=== PATIENT | male | born 1985 | race Caucasian/White ===

== ENCOUNTER 2018-08-19 00:22 | Inpatient (IN) | payer SELFPAY ==
[2018-08-19] VITALS (9 sets, daily range): BP systolic 126–156; BP diastolic 66–91
[~2018-08-19] VITALS: Ht 175.3 cm; Wt 73.3 kg
[2018-08-19] MEDS ORDERED: MORPHINE SULFATE 2 MG/ML VIAL. IV PRN ×2 (02:30→08:30)
[2018-08-19] MEDS ORDERED: ONDANSETRON PF 4 MG/2 ML VIAL. IV PRN ×2 (02:30→08:30)
[2018-08-19] MEDS: MORPHINE SULFATE 4 MG/ML VIAL. IV PRN ×4 (02:49→15:38)
[2018-08-19] MEDS: IV NORMAL SALINE 1000ML BAG 1,000 ML IV SCH ×2 (02:50→12:30)
[2018-08-19 07:28] LABS: BASO % 0 % (0-3); EOS # 0.1 x10^3/uL (0.0-0.7); EOS % 1 % (0-3); HEMATOCRIT 41.1 % (39.0-53.0); HEMOGLOBIN 14.2 g/dL (13.0-17.5); LYMPH % 28 % (24-48); MEAN CORPUSCULAR HEMOGLOBIN 30 pg (25-35); MEAN CORPUSCULAR HGB CONC 35 g/dL (31-37); MEAN CORPUSCULAR VOLUME 85 fL (79-100); MONO # 0.9 x10^3/uL (0.0-1.1); MONO % 8 % (0-9); NEUT # 6.8 x10^3uL (1.8-7.7); NEUT % 63 % (31-73); PLATELET COUNT 191 x10^3/uL (140-400); RED BLOOD COUNT 4.83 x10^6/uL (4.30-5.70); RED CELL DISTRIBUTION WIDTH 13.4 % (11.5-14.5); WHITE BLOOD COUNT 10.8 x10^3/uL (4.0-11.0)
[2018-08-19 07:32] LABS: ALBUMIN 3.5 g/dL (3.4-5.0); ALBUMIN/GLOBULIN RATIO 1.2 (1.0-1.7); CREATININE 1.5 mg/dL (0.7-1.3); GFR 54.2; POTASSIUM 3.9 mmol/L (3.5-5.1); TOTAL BILIRUBIN 0.8 mg/dL (0.2-1.0); TOTAL PROTEIN 6.4 g/dL (6.4-8.2)
[2018-08-19] MEDS ORDERED: IV RINGERS,LACTATED 1000ML 1,000 ML IV SCH (08:21)
[2018-08-19] MEDS ORDERED: PROCHLORPERAZINE 10 MG/2 ML VIAL. IV PRN (08:30)
[2018-08-19] MEDS ORDERED: LIDOCAINE 1% PF 2 ML VIAL. ID PRN (08:30)
[2018-08-19] MEDS ORDERED: fentaNYL PF VIAL 100 MCG/2 ML VIAL IV PRN ×2 (08:30)
[2018-08-19] MEDS ORDERED: HYDROmorphone 2 MG/ML VIAL IV PRN (08:30)
--- NOTE | 2018-08-19 10:56 | PDOC2 ---
UROLOGY CONSULT Date of Consult Date of Consult DATE: 08/19/18 TIME: 10:52 Reason for Consult Reason for Consult: right ureter stone Identification/Chief Complaint Chief Complaint right flank pain History of Present Illness Reason for Visit: 33 yo male transferred from [facility] this AM. Has had 2 weeks right flank pain. CT showed 4 mm right UVJ stone. Has had 4 ER trips for this in the past 2 weeks. No fevers, chills, hematuria. Has had several stones in past. Currently mild right flank and lower abdominal pain. Past Medical History Renal/: Other (kidney stones) Past Surgical History Past Surgical History: No pertinent history Family History Family History: No Significant Social History No ALCOHOL: rare Drugs: None Lives: with Family Current Medications Current Medications Current Medications Fentanyl Citrate (Fentanyl 2ml Vial) 25 mcg PRN Q5MIN PRN IV MILD PAIN; Start 08/19/18 at 08:30; Stop 08/20/18 at 08:29 Fentanyl Citrate (Fentanyl 2ml Vial) 50 mcg PRN Q5MIN PRN IV MODERATE TO SEVERE PAIN; Start 08/19/18 at 08:30; Stop 08/20/18 at 08:29 Hydromorphone HCl (Dilaudid) 0.5 mg PRN Q10MIN PRN IV SEV PAIN, Second choice; Start 08/19/18 at 08:30; Stop 08/20/18 at 08:29 Lidocaine HCl (Xylocaine-Mpf 1% 2ml Vial) 2 ml 1X PRN PRN ID IV START; Start 08/19/18 at 08:30; Stop 08/20/18 at 08:29 Morphine Sulfate (Morphine Sulfate) 1 mg PRN Q10MIN PRN IV SEVERE PAIN; Start 08/19/18 at 08:30; Stop 08/20/18 at 08:29 Morphine Sulfate (Morphine Sulfate) 2 mg PRN Q2HR PRN IV PAIN MILD Last administered on 08/19/18at 06:08; Start 08/19/18 at 02:30 Morphine Sulfate (Morphine Sulfate) 4 mg PRN Q2HR PRN IV PAIN SEVERE Last administered on 08/19/18at 08:08; Start 08/19/18 at 02:30 Ondansetron HCl (Zofran) 4 mg PRN Q6HRS PRN IV NAUSEA/VOMITING 1st choice; Start 08/19/18 at 02:30 Ondansetron HCl (Zofran) 4 mg PRN Q6HRS PRN IV NAUSEA/VOMITING; Start at 08:30; Stop 08/20/18 at 08:29 Prochlorperazine Edisylate (Compazine) 5 mg PACU PRN PRN IV NAUSEA, MRX1; Start 08/19/18 at 08:30; Stop 08/20/18 at 08:29 Ringer's Solution 1,000 ml @ 30 mls/hr Q24H IV ; Start 08/19/18 at 08:21; Stop 08/19/18 at 20:20 Sodium Chloride 1,000 ml @ 100 mls/hr Q10H IV Last administered on 08/19/18at 02:50; Start 08/19/18 at 02:30 Allergies Allergies: Coded Allergies: No Known Drug Allergies (Unverified , 08/19/18) ROS Review Of Systems: except as in HPI: CONSTITUTIONAL: No fever or chills EYES: No recent changes SKIN: No rash or itching CARDIOVASCULAR: No chest pain, syncope, palpitations, or edema RESPIRATORY: No SOB or cough GASTROINTESTINAL: poor appetite, poor PO intake NEUROLOGICAL: No headaches or weakness ENDOCRINE: No cold or heat intolerance GENITOURINARY: No urgency or frequency of urination MUSCULOSKELETAL: No back pain or joint pain LYMPHATICS: No enlarged lymph nodes PSYCHIATRIC: No anxiety or depression Physical Exam Physical Exam: General: Pleasant, no acute distress, well groomed Eyes: conjunctiva anicteric, eyes full range of motion ENT: moist oral mucosa, normal dentition Neck: Trachea midline, no masses Respiratory: unlabored breathing, not using accessory muscles, no crackles or wheezes Cardiovascular: Regular rate and rhythm, no peripheral edema Abdomen: mild RLQ tender, nondistended, no hepatosplenomegaly, no masses BACK: mild right CVA tenderness Skin: no rashes or skin lesions on visualized skin Psych: normal mood, affect. Alert and oriented x 3. Vitals VITALS Vital Signs Date Time Temp Pulse Resp B/P (MAP) Pulse Ox O2 Delivery O2 Flow Rate FiO2 08/19/18 08:08 Room Air 08/19/18 07:00 97.9 56 16 149/91 (110) 97 97.9 Labs Labs Laboratory Tests Test 08/19/18 07:05 White Blood Count 10.8 x10^3/uL (4.0-11.0) Red Blood Count 4.83 x10^6/uL (4.30-5.70) Hemoglobin 14.2 g/dL (13.0-17.5) Hematocrit 41.1 % (39.0-53.0) Mean Corpuscular Volume 85 fL (79-100) Mean Corpuscular Hemoglobin 30 pg (25-35) Mean Corpuscular Hemoglobin Concent 35 g/dL (31-37) Red Cell Distribution Width 13.4 % (11.5-14.5) Platelet Count 191 x10^3/uL (140-400) Neutrophils (%) (Auto) 63 % (31-73) Lymphocytes (%) (Auto) 28 % (24-48) Monocytes (%) (Auto) 8 % (0-9) Eosinophils (%) (Auto) 1 % (0-3) Basophils (%) (Auto) 0 % (0-3) Neutrophils # (Auto) 6.8 x10^3uL (1.8-7.7) Lymphocytes # (Auto) 3.0 x10^3/uL (1.0-4.8) Monocytes # (Auto) 0.9 x10^3/uL (0.0-1.1) Eosinophils # (Auto) 0.1 x10^3/uL (0.0-0.7) Basophils # (Auto) 0.0 x10^3/uL (0.0-0.2) Sodium Level 142 mmol/L (136-145) Potassium Level 3.9 mmol/L (3.5-5.1) Chloride Level 106 mmol/L (98-107) Carbon Dioxide Level 30 mmol/L (21-32) Anion Gap 6 (6-14) Blood Urea Nitrogen 16 mg/dL (8-26) Creatinine 1.5 mg/dL (0.7-1.3) Estimated GFR (Cockcroft-Gault) 54.2 BUN/Creatinine Ratio 11 (6-20) Glucose Level 89 mg/dL (70-99) Calcium Level 9.0 mg/dL (8.5-10.1) Total Bilirubin 0.8 mg/dL (0.2-1.0) Aspartate Amino Transf (AST/SGOT) 23 U/L (15-37) Alanine Aminotransferase (ALT/SGPT) 77 U/L (16-63) Alkaline Phosphatase 55 U/L (46-116) Total Protein 6.4 g/dL (6.4-8.2) Albumin 3.5 g/dL (3.4-5.0) Albumin/Globulin Ratio 1.2 (1.0-1.7) Laboratory Tests Test 08/19/18 07:05 White Blood Count 10.8 x10^3/uL (4.0-11.0) Red Blood Count 4.83 x10^6/uL (4.30-5.70) Hemoglobin 14.2 g/dL (13.0-17.5) Hematocrit 41.1 % (39.0-53.0) Mean Corpuscular Volume 85 fL (79-100) Mean Corpuscular Hemoglobin 30 pg (25-35) Mean Corpuscular Hemoglobin Concent 35 g/dL (31-37) Red Cell Distribution Width 13.4 % (11.5-14.5) Platelet Count 191 x10^3/uL (140-400) Neutrophils (%) (Auto) 63 % (31-73) Lymphocytes (%) (Auto) 28 % (24-48) Monocytes (%) (Auto) 8 % (0-9) Eosinophils (%) (Auto) 1 % (0-3) Basophils (%) (Auto) 0 % (0-3) Neutrophils # (Auto) 6.8 x10^3uL (1.8-7.7) Lymphocytes # (Auto) 3.0 x10^3/uL (1.0-4.8) Monocytes # (Auto) 0.9 x10^3/uL (0.0-1.1) Eosinophils # (Auto) 0.1 x10^3/uL (0.0-0.7) Basophils # (Auto) 0.0 x10^3/uL (0.0-0.2) Sodium Level 142 mmol/L (136-145) Potassium Level 3.9 mmol/L (3.5-5.1) Chloride Level 106 mmol/L (98-107) Carbon Dioxide Level 30 mmol/L (21-32) Anion Gap 6 (6-14) Blood Urea Nitrogen 16 mg/dL (8-26) Creatinine 1.5 mg/dL (0.7-1.3) Estimated GFR (Cockcroft-Gault) 54.2 BUN/Creatinine Ratio 11 (6-20) Glucose Level 89 mg/dL (70-99) Calcium Level 9.0 mg/dL (8.5-10.1) Total Bilirubin 0.8 mg/dL (0.2-1.0) Aspartate Amino Transf (AST/SGOT) 23 U/L (15-37) Alanine Aminotransferase (ALT/SGPT) 77 U/L (16-63) Alkaline Phosphatase 55 U/L (46-116) Total Protein 6.4 g/dL (6.4-8.2) Albumin 3.5 g/dL (3.4-5.0) Albumin/Globulin Ratio 1.2 (1.0-1.7) Assessment/Plan Assessment/Plan We discussed options of trying to allow stone pass vs surgery. Since he has had several hospital visits, he wants to proceed with surgery. Plan for right ureteroscopy, laser of stone, possible stent placement later today. Risks of bleeding, infection, injury to urologic structures, anesthesia risk discussed. FAY STRANGE MD Aug 19, 2018 10:55
--- NOTE | 2018-08-19 11:17 | PDOC1 ---
History and Physical Date of Admission Date of Admission DATE: 08/19/18 TIME: 11:17 Identification/Chief Complaint Chief Complaint 33 yo male from [facility] , 2 weeks right intractable flank pain. CT showed 4 mm right UVJ stonePREOPERATIVE DIAGNOSIS: Right ureteral stone. POSTOPERATIVE DIAGNOSIS: Right ureteral stone. PROCEDURE PERFORMED: Right ureteroscopy with laser of stone, stone extraction, stent placement. ANESTHESIA TYPE: General. INDICATION FOR PROCEDURE: This is a 33-year-old male admitted for right ureteral stone. After discussion of risks, benefits and alternatives, he agreed to the above procedure. Past Medical History Past Medical History Past Medical History Renal/: Other (kidney stones) Past Surgical History Past Surgical History: No pertinent history Family History Family History: No Significant Social History No ALCOHOL: rare Drugs: None Lives: with Family Cardiovascular: No pertinent hx Infectious disease: No pertinent hx Renal/: Other (kidney stones) Endocrine: No pertinent hx Past Surgical History Past Surgical History: No pertinent history Family History Family History: No Significant Social History Smoke: No ALCOHOL: rare Drugs: None Current Medications Current Medications Current Medications Ondansetron HCl (Zofran) 4 mg PRN Q6HRS PRN IV NAUSEA/VOMITING 1st choice; Start 08/19/18 at 02:30 Morphine Sulfate (Morphine Sulfate) 2 mg PRN Q2HR PRN IV PAIN MILD Last administered on 08/19/18at 06:08; Start 08/19/18 at 02:30 Morphine Sulfate (Morphine Sulfate) 4 mg PRN Q2HR PRN IV PAIN SEVERE Last administered on 08/19/18at 08:08; Start 08/19/18 at 02:30 Sodium Chloride 1,000 ml @ 100 mls/hr Q10H IV Last administered on 08/19/18at 02:50; Start 08/19/18 at 02:30 Ondansetron HCl (Zofran) 4 mg PRN Q6HRS PRN IV NAUSEA/VOMITING; Start at 08:30; Stop 08/20/18 at 08:29 Fentanyl Citrate (Fentanyl 2ml Vial) 25 mcg PRN Q5MIN PRN IV MILD PAIN; Start 08/19/18 at 08:30; Stop 08/20/18 at 08:29 Fentanyl Citrate (Fentanyl 2ml Vial) 50 mcg PRN Q5MIN PRN IV MODERATE TO SEVERE PAIN; Start 08/19/18 at 08:30; Stop 08/20/18 at 08:29 Morphine Sulfate (Morphine Sulfate) 1 mg PRN Q10MIN PRN IV SEVERE PAIN; Start 08/19/18 at 08:30; Stop 08/20/18 at 08:29 Ringer's Solution 1,000 ml @ 30 mls/hr Q24H IV ; Start 08/19/18 at 08:21; Stop 08/19/18 at 20:20 Lidocaine HCl (Xylocaine-Mpf 1% 2ml Vial) 2 ml 1X PRN PRN ID IV START; Start 08/19/18 at 08:30; Stop 08/20/18 at 08:29 Hydromorphone HCl (Dilaudid) 0.5 mg PRN Q10MIN PRN IV SEV PAIN, Second choice; Start 08/19/18 at 08:30; Stop 08/20/18 at 08:29 Prochlorperazine Edisylate (Compazine) 5 mg PACU PRN PRN IV NAUSEA, MRX1; Start 08/19/18 at 08:30; Stop 08/20/18 at 08:29 Cefazolin Sodium/ Dextrose 50 ml @ 100 mls/hr 1X ONCE IV ; Start 08/19/18 at 13:00; Stop 08/19/18 at 13:29 Allergies Allergies: Coded Allergies: No Known Drug Allergies (Unverified , 08/19/18) ROS General: No: Chills, Night Sweats, Fatigue, Malaise, Appetite, Other PSYCHOLOGICAL ROS: No: Anxiety, Behavioral Disorder, Concentration difficultie , Decreased libido, Depression, Disorientation, Hallucinations, Hostility, Irritablity, Memory difficulties, Mood Swings, Obsessive thoughts, Physical abuse, Sexual abuse, Sleep disturbances, Suicidal ideation, Other Eyes: No Blurry vision, No Decreased vision, No Double vision, No Dry eyes, No Excessive tearing, No Eye Pain, No Itchy Eyes, No Loss of vision, No Photophobia , No Scotomata, No Uses contacts, No Uses glasses, No Other HEENT: No: Heacaches, Visual Changes, Hearing change, Nasal congestion, Nasal discharge, Oral lesions, Sinus pain, Sore Throat, Epistaxis, Sneezing, Snoring, Tinnitus, Vertigo, Vocal changes, Other ALLERGY AND IMMUNOLOGY: No: Hives, Insect Bite Sensitivity, Itchy/Watery Eyes, Nasal Congestion, Post Nasal Drip, Seasonal Allergies, Other Hematological and Lymphatic: No: Bleeding Problems, Blood Clots, Blood Transfusions, Brusing, Night Sweats, Pallor, Swollen Lymph Nodes, Other Breast: No New/Changing Breast Lumps, No Nipple changes, No Nipple discharge, No Other Respiratory: No: Cough, Hemoptysis, Orthopnea, Pleuritic Pain, Shortness of breath, SOB with excertion, Sputum Changes, Stridor, Tachypnea, Wheezing, Other Cardiovascular: No Chest Pain, No Palpitations, No Orthopnea, No Paroxysmal Noc. Dyspnea, No Edema, No Lt Headedness, No Other Gastrointestinal: No Nausea, No Vomiting, No Abdominal Pain, No Diarrhea, No Constipation, No Melena, No Hematochezia, No Other Genitourinary: YES Dysuria, YES Hematuria Neurological: No Behavorial Changes, No Bowel/Bladder ControlChng, No Confusion , No Dizziness, No Gait Disturbance, No Headaches, No Impaired Coord/balance, No Memory Loss, No Numbness/Tingling, No Seizures, No Speech Problems, No Tremors, No Visual Changes, No Weakness, No Other Skin: No Dry Skin, No Eczema, No Hair Changes, No Lumps, No Mole Changes, No Mottling, No Nail Changes, No Pruritus, No Rash, No Skin Lesion Changes, No Other, No Acne Physical Exam General: Alert, Oriented X3, Cooperative, mild distress HEENT: Atraumatic, PERRLA Lungs: Clear to auscultation, Normal air movement Heart: S1S2, RRR, no thrills, no rubs, no murmurs Cardiovascular: S1, S2 Breasts: Not examined Abdomen: Normal bowel sounds, Soft Rectal Exam: not examined PELVIC: Examination not indicated Extremities: No clubbing, No cyanosis, No edema Skin: No rashes, No breakdown Neuro: Normal speech, Normal tone, Sensation intact, Cranial nerves 3-12 NL Psych/Mental Status: Mental status NL, Mood NL Vitals Vitals Vital Signs Date Time Temp Pulse Resp B/P (MAP) Pulse Ox O2 Delivery O2 Flow Rate FiO2 08/19/18 08:08 Room Air 08/19/18 07:00 97.9 56 16 149/91 (110) 97 97.9 Labs Labs Laboratory Tests Test 08/19/18 07:05 White Blood Count 10.8 x10^3/uL (4.0-11.0) Red Blood Count 4.83 x10^6/uL (4.30-5.70) Hemoglobin 14.2 g/dL (13.0-17.5) Hematocrit 41.1 % (39.0-53.0) Mean Corpuscular Volume 85 fL (79-100) Mean Corpuscular Hemoglobin 30 pg (25-35) Mean Corpuscular Hemoglobin Concent 35 g/dL (31-37) Red Cell Distribution Width 13.4 % (11.5-14.5) Platelet Count 191 x10^3/uL (140-400) Neutrophils (%) (Auto) 63 % (31-73) Lymphocytes (%) (Auto) 28 % (24-48) Monocytes (%) (Auto) 8 % (0-9) Eosinophils (%) (Auto) 1 % (0-3) Basophils (%) (Auto) 0 % (0-3) Neutrophils # (Auto) 6.8 x10^3uL (1.8-7.7) Lymphocytes # (Auto) 3.0 x10^3/uL (1.0-4.8) Monocytes # (Auto) 0.9 x10^3/uL (0.0-1.1) Eosinophils # (Auto) 0.1 x10^3/uL (0.0-0.7) Basophils # (Auto) 0.0 x10^3/uL (0.0-0.2) Sodium Level 142 mmol/L (136-145) Potassium Level 3.9 mmol/L (3.5-5.1) Chloride Level 106 mmol/L (98-107) Carbon Dioxide Level 30 mmol/L (21-32) Anion Gap 6 (6-14) Blood Urea Nitrogen 16 mg/dL (8-26) Creatinine 1.5 mg/dL (0.7-1.3) Estimated GFR (Cockcroft-Gault) 54.2 BUN/Creatinine Ratio 11 (6-20) Glucose Level 89 mg/dL (70-99) Calcium Level 9.0 mg/dL (8.5-10.1) Total Bilirubin 0.8 mg/dL (0.2-1.0) Aspartate Amino Transf (AST/SGOT) 23 U/L (15-37) Alanine Aminotransferase (ALT/SGPT) 77 U/L (16-63) Alkaline Phosphatase 55 U/L (46-116) Total Protein 6.4 g/dL (6.4-8.2) Albumin 3.5 g/dL (3.4-5.0) Albumin/Globulin Ratio 1.2 (1.0-1.7) Laboratory Tests Test 08/19/18 07:05 White Blood Count 10.8 x10^3/uL (4.0-11.0) Red Blood Count 4.83 x10^6/uL (4.30-5.70) Hemoglobin 14.2 g/dL (13.0-17.5) Hematocrit 41.1 % (39.0-53.0) Mean Corpuscular Volume 85 fL (79-100) Mean Corpuscular Hemoglobin 30 pg (25-35) Mean Corpuscular Hemoglobin Concent 35 g/dL (31-37) Red Cell Distribution Width 13.4 % (11.5-14.5) Platelet Count 191 x10^3/uL (140-400) Neutrophils (%) (Auto) 63 % (31-73) Lymphocytes (%) (Auto) 28 % (24-48) Monocytes (%) (Auto) 8 % (0-9) Eosinophils (%) (Auto) 1 % (0-3) Basophils (%) (Auto) 0 % (0-3) Neutrophils # (Auto) 6.8 x10^3uL (1.8-7.7) Lymphocytes # (Auto) 3.0 x10^3/uL (1.0-4.8) Monocytes # (Auto) 0.9 x10^3/uL (0.0-1.1) Eosinophils # (Auto) 0.1 x10^3/uL (0.0-0.7) Basophils # (Auto) 0.0 x10^3/uL (0.0-0.2) Sodium Level 142 mmol/L (136-145) Potassium Level 3.9 mmol/L (3.5-5.1) Chloride Level 106 mmol/L (98-107) Carbon Dioxide Level 30 mmol/L (21-32) Anion Gap 6 (6-14) Blood Urea Nitrogen 16 mg/dL (8-26) Creatinine 1.5 mg/dL (0.7-1.3) Estimated GFR (Cockcroft-Gault) 54.2 BUN/Creatinine Ratio 11 (6-20) Glucose Level 89 mg/dL (70-99) Calcium Level 9.0 mg/dL (8.5-10.1) Total Bilirubin 0.8 mg/dL (0.2-1.0) Aspartate Amino Transf (AST/SGOT) 23 U/L (15-37) Alanine Aminotransferase (ALT/SGPT) 77 U/L (16-63) Alkaline Phosphatase 55 U/L (46-116) Total Protein 6.4 g/dL (6.4-8.2) Albumin 3.5 g/dL (3.4-5.0) Albumin/Globulin Ratio 1.2 (1.0-1.7) VTE Prophylaxis Ordered VTE Prophylaxis Devices: No VTE Pharmacological Prophylaxi: Contraindicated Assessment/Plan Assessment/Plan impression 1. intractable ureteral colic 2. ureteral stone plan urology following iv pain control sq lovenox dvt prophylaxis stent removal 10 days by urology ROSEMARY MURILLO MD Aug 19, 2018 11:17
[2018-08-19] MEDS ORDERED: NICOTINE 21MG PATCH. TD SCH (11:45)
[2018-08-19] MEDS ORDERED: MIDAZOLAM HCL/PF 2 MG/2 ML VIAL. ONE (12:04)
[2018-08-19] MEDS ORDERED: LIDOCAINE 2% PF Vial for OR 5 ML VIAL. ONE (12:04)
[2018-08-19] MEDS ORDERED: fentaNYL PF VIAL 100 MCG/2 ML VIAL ONE (12:04)
[2018-08-19] MEDS ORDERED: PROPOFOL 20 ML IV ONE (12:04)
[2018-08-19] MEDS ORDERED: DEXAMETHASONE SOD PHOS 20 MG/5 ML VIAL. ONE (12:04)
[2018-08-19] MEDS ORDERED: ONDANSETRON PF 4 MG/2 ML VIAL. ONE (12:04)
[2018-08-19] MEDS ORDERED: FAMOTIDINE 20 MG/2 ML VIAL ONE (12:04)
[2018-08-19] MEDS ORDERED: SUCCINYLCHOLINE 200 MG/10 ML VIAL. ONE (12:05)
[2018-08-19] MEDS ORDERED: ROCURONIUM 50 MG/5 ML VIAL. ONE (12:05)
[2018-08-19] MEDS ORDERED: SEVOFLURANE 31 TO 60 MINUTES. IH ONE (14:17)
--- NOTE | 2018-08-19 14:23 | PDOC4 ---
OPERATIVE NOTE Date: Date: Aug 19, 2018 Pre-Op Diagnosis: right ureter stone Post-Op Diagnosis: same Procedure Performed: right ureteroscopy, laser of stone, stent placement Surgeon: Fay Strange MD Anesthesia Type: general Blood Loss: none Specimans Obtained: right ureter stone Findings: right distal ureter stone Complications: none Operative Note: see dictation ok for discharge from Urology perspective. Patient needs to pull out stent / strin gin one week, or followup in urology clinic for stent removal. FAY STRANGE MD Aug 19, 2018 14:23
[2018-08-19] MEDS ORDERED: OXYBUTYNIN CHLORIDE 5 MG TABLET PO PRN (14:30)
--- NOTE | 2018-08-19 15:14 | OP ---
DATE OF SURGERY: 08/19/2018 PREOPERATIVE DIAGNOSIS: Right ureteral stone. POSTOPERATIVE DIAGNOSIS: Right ureteral stone. PROCEDURE PERFORMED: Right ureteroscopy with laser of stone, stone extraction, stent placement. ANESTHESIA TYPE: General. INDICATION FOR PROCEDURE: This is a 33-year-old male admitted for right ureteral stone. After discussion of risks, benefits and alternatives, he agreed to the above procedure. DESCRIPTION OF PROCEDURE: After an informed consent was obtained, the patient was taken to the operating where general anesthesia was induced. He was placed in dorsal lithotomy position and sterilely prepped and draped. A timeout was performed. A rigid cystoscope was advanced through the urethra and into the bladder. A guidewire was passed into the right ureter. A rigid ureteroscope was advanced alongside the wire to a stone in the distal right ureter. Stone was fragmented into 2 smaller fragments and then grasped with a basket and removed without difficulty. The guidewire was then loaded over a cystoscope. A 6 x 26 cm stent was then advanced over the wire and into the right renal pelvis with a curl in the bladder. The bladder was emptied. The string was secured to the patient's penis. The patient was then awakened, taken to the recovery room. ESTIMATED BLOOD LOSS: None. COMPLICATIONS: None. SPECIMEN: Right ureteral stone fragment. FAY STRANGE MD DR: VIDAL/gurdeep JOB#: [id number] / [id number]
--- NOTE | 2018-08-19 16:42 | PDOC3 ---
Discharge Summary Date of Admission: Aug 18, 2018 Date of Discharge: Aug 19, 2018 Follow-Up: By telephone Admitting Diagnosis comment: Assessment/Plan Assessment/Plan impression 1. intractable ureteral colic 2. ureteral stone plan urology following iv pain control sq lovenox dvt prophylaxis stent removal 10 days by urology Identification/Chief Complaint Chief Complaint 33 yo male from [facility] , 2 weeks right intractable flank pain. CT showed 4 mm right UVJ stonePREOPERATIVE DIAGNOSIS: Right ureteral stone. POSTOPERATIVE DIAGNOSIS: Right ureteral stone. PROCEDURE PERFORMED: Right ureteroscopy with laser of stone, stone extraction, stent placement. ANESTHESIA TYPE: General. INDICATION FOR PROCEDURE: This is a 33-year-old male admitted for right ureteral stone. After discussion of risks, benefits and alternatives, he agreed to the above procedure. Past Medical History Past Medical History Past Medical History Renal/: Other (kidney stones) Past Surgical History Past Surgical History: No pertinent history Family History Family History: No Significant Social History No ALCOHOL: rare Drugs: None Lives: with Family Cardiovascular: No pertinent hx Infectious disease: No pertinent hx Renal/: Other (kidney stones) Endocrine: No pertinent hx Past Surgical History Past Surgical History: No pertinent history Family History Family History: No Significant Social History Smoke: No ALCOHOL: rare Drugs: None Current Medications Current Medications Current Medications Ondansetron HCl (Zofran) 4 mg PRN Q6HRS PRN IV NAUSEA/VOMITING 1st choice; Start 08/19/18 at 02:30 Morphine Sulfate (Morphine Sulfate) 2 mg PRN Q2HR PRN IV PAIN MILD Last administered on 08/19/18at 06:08; Start 08/19/18 at 02:30 Morphine Sulfate (Morphine Sulfate) 4 mg PRN Q2HR PRN IV PAIN SEVERE Last administered on 08/19/18at 08:08; Start 08/19/18 at 02:30 Sodium Chloride 1,000 ml @ 100 mls/hr Q10H IV Last administered on 08/19/18at 02:50; Start 08/19/18 at 02:30 Ondansetron HCl (Zofran) 4 mg PRN Q6HRS PRN IV NAUSEA/VOMITING; Start at 08:30; Stop 08/20/18 at 08:29 Fentanyl Citrate (Fentanyl 2ml Vial) 25 mcg PRN Q5MIN PRN IV MILD PAIN; Start 08/19/18 at 08:30; Stop 08/20/18 at 08:29 Fentanyl Citrate (Fentanyl 2ml Vial) 50 mcg PRN Q5MIN PRN IV MODERATE TO SEVERE PAIN; Start 08/19/18 at 08:30; Stop 08/20/18 at 08:29 Morphine Sulfate (Morphine Sulfate) 1 mg PRN Q10MIN PRN IV SEVERE PAIN; Start 08/19/18 at 08:30; Stop 08/20/18 at 08:29 Ringer's Solution 1,000 ml @ 30 mls/hr Q24H IV ; Start 08/19/18 at 08:21; Stop 08/19/18 at 20:20 Lidocaine HCl (Xylocaine-Mpf 1% 2ml Vial) 2 ml 1X PRN PRN ID IV START; Start 08/19/18 at 08:30; Stop 08/20/18 at 08:29 Hydromorphone HCl (Dilaudid) 0.5 mg PRN Q10MIN PRN IV SEV PAIN, Second choice; Start 08/19/18 at 08:30; Stop 08/20/18 at 08:29 Prochlorperazine Edisylate (Compazine) 5 mg PACU PRN PRN IV NAUSEA, MRX1; Start 08/19/18 at 08:30; Stop 08/20/18 at 08:29 Cefazolin Sodium/ Dextrose 50 ml @ 100 mls/hr 1X ONCE IV ; Start 08/19/18 at 13:00; Stop 08/19/18 at 13:29 Allergies Allergies: Coded Allergies: No Known Drug Allergies (Unverified , 08/19/18) ROS General: No: Chills, Night Sweats, Fatigue, Malaise, Appetite, Other PSYCHOLOGICAL ROS: No: Anxiety, Behavioral Disorder, Concentration difficultie , Decreased libido, Depression, Disorientation, Hallucinations, Hostility, Irritablity, Memory difficulties, Mood Swings, Obsessive thoughts, Physical abuse, Sexual abuse, Sleep disturbances, Suicidal ideation, Other Eyes: No Blurry vision, No Decreased vision, No Double vision, No Dry eyes, No Excessive tearing, No Eye Pain, No Itchy Eyes, No Loss of vision, No Photophobia , No Scotomata, No Uses contacts, No Uses glasses, No Other HEENT: No: Heacaches, Visual Changes, Hearing change, Nasal congestion, Nasal discharge, Oral lesions, Sinus pain, Sore Throat, Epistaxis, Sneezing, Snoring, Tinnitus, Vertigo, Vocal changes, Other ALLERGY AND IMMUNOLOGY: No: Hives, Insect Bite Sensitivity, Itchy/Watery Eyes, Nasal Congestion, Post Nasal Drip, Seasonal Allergies, Other Hematological and Lymphatic: No: Bleeding Problems, Blood Clots, Blood Transfusions, Brusing, Night Sweats, Pallor, Swollen Lymph Nodes, Other Breast: No New/Changing Breast Lumps, No Nipple changes, No Nipple discharge, No Other Respiratory: No: Cough, Hemoptysis, Orthopnea, Pleuritic Pain, Shortness of breath, SOB with excertion, Sputum Changes, Stridor, Tachypnea, Wheezing, Other Cardiovascular: No Chest Pain, No Palpitations, No Orthopnea, No Paroxysmal Noc. Dyspnea, No Edema, No Lt Headedness, No Other Gastrointestinal: No Nausea, No Vomiting, No Abdominal Pain, No Diarrhea, No Constipation, No Melena, No Hematochezia, No Other Genitourinary: YES Dysuria, YES Hematuria Neurological: No Behavorial Changes, No Bowel/Bladder ControlChng, No Confusion , No Dizziness, No Gait Disturbance, No Headaches, No Impaired Coord/balance, No Memory Loss, No Numbness/Tingling, No Seizures, No Speech Problems, No Tremors, No Visual Changes, No Weakness, No Other Skin: No Dry Skin, No Eczema, No Hair Changes, No Lumps, No Mole Changes, No Mottling, No Nail Changes, No Pruritus, No Rash, No Skin Lesion Changes, No Other, No Acne Physical Exam General: Alert, Oriented X3, Cooperative, mild distress HEENT: Atraumatic, PERRLA Lungs: Clear to auscultation, Normal air movement Heart: S1S2, RRR, no thrills, no rubs, no murmurs Cardiovascular: S1, S2 Breasts: Not examined Abdomen: Normal bowel sounds, Soft Rectal Exam: not examined PELVIC: Examination not indicated Extremities: No clubbing, No cyanosis, No edema Skin: No rashes, No breakdown Neuro: Normal speech, Normal tone, Sensation intact, Cranial nerves 3-12 NL Psych/Mental Status: Mental status NL, Mood NL Vitals Brief Hospital Course Mr. Hernandez is a 33 old [sex] who presented with [ureteral stone ] CONDITION AT DISCHARGE: Improved Discharge Medications Current Medications Ondansetron HCl (Zofran) 4 mg PRN Q6HRS PRN IV NAUSEA/VOMITING 1st choice; Start 08/19/18 at 02:30 Morphine Sulfate (Morphine Sulfate) 2 mg PRN Q2HR PRN IV PAIN MILD Last administered on 08/19/18at 06:08; Start 08/19/18 at 02:30 Morphine Sulfate (Morphine Sulfate) 4 mg PRN Q2HR PRN IV PAIN SEVERE Last administered on 08/19/18at 15:38; Start 08/19/18 at 02:30 Sodium Chloride 1,000 ml @ 100 mls/hr Q10H IV Last administered on 08/19/18at 02:50; Start 08/19/18 at 02:30 Ondansetron HCl (Zofran) 4 mg PRN Q6HRS PRN IV NAUSEA/VOMITING; Start at 08:30; Stop 08/20/18 at 08:29 Fentanyl Citrate (Fentanyl 2ml Vial) 25 mcg PRN Q5MIN PRN IV MILD PAIN; Start 08/19/18 at 08:30; Stop 08/20/18 at 08:29 Fentanyl Citrate (Fentanyl 2ml Vial) 50 mcg PRN Q5MIN PRN IV MODERATE TO SEVERE PAIN; Start 08/19/18 at 08:30; Stop 08/20/18 at 08:29 Morphine Sulfate (Morphine Sulfate) 1 mg PRN Q10MIN PRN IV SEVERE PAIN; Start 08/19/18 at 08:30; Stop 08/20/18 at 08:29 Ringer's Solution 1,000 ml @ 30 mls/hr Q24H IV Last administered on at 12:55; Start 08/19/18 at 08:21; Stop 08/19/18 at 20:20 Lidocaine HCl (Xylocaine-Mpf 1% 2ml Vial) 2 ml 1X PRN PRN ID IV START; Start 08/19/18 at 08:30; Stop 08/20/18 at 08:29 Hydromorphone HCl (Dilaudid) 0.5 mg PRN Q10MIN PRN IV SEV PAIN, Second choice; Start 08/19/18 at 08:30; Stop 08/20/18 at 08:29 Prochlorperazine Edisylate (Compazine) 5 mg PACU PRN PRN IV NAUSEA, MRX1; Start 08/19/18 at 08:30; Stop 08/20/18 at 08:29 Cefazolin Sodium/ Dextrose 50 ml @ 100 mls/hr 1X ONCE IV Last administered on 08/19/18at 13:40; Start 08/19/18 at 13:00; Stop 08/19/18 at 13:29; Status DC Nicotine (Nicoderm Cq 21mg) 1 patch DAILY TD Last administered on 08/19/18at 11 :48; Start 08/19/18 at 11:45 Propofol 20 ml @ As Directed STK-MED ONCE IV ; Start 08/19/18 at 12:04; Stop 08/19/18 at 12:05; Status DC Ondansetron HCl (Zofran) 4 mg STK-MED ONCE .ROUTE ; Start 08/19/18 at 12:04; Stop 08/19/18 at 12:05; Status DC Dexamethasone Sodium Phosphate (Decadron) 20 mg STK-MED ONCE .ROUTE ; Start at 12:04; Stop 08/19/18 at 12:05; Status DC Lidocaine HCl (Lidocaine Pf 2% Vial) 5 ml STK-MED ONCE .ROUTE ; Start 08/19/18 at 12:04; Stop 08/19/18 at 12:05; Status DC Famotidine (Pepcid Vial) 20 mg STK-MED ONCE .ROUTE ; Start 08/19/18 at 12:04; Stop 08/19/18 at 12:05; Status DC Fentanyl Citrate (Fentanyl 2ml Vial) 100 mcg STK-MED ONCE .ROUTE ; Start at 12:04; Stop 08/19/18 at 12:05; Status DC Midazolam HCl (Versed) 2 mg STK-MED ONCE .ROUTE ; Start 08/19/18 at 12:04; Stop 08/19/18 at 12:05; Status DC Succinylcholine Chloride (Anectine) 200 mg STK-MED ONCE .ROUTE ; Start at 12:05; Stop 08/19/18 at 12:06; Status DC Rocuronium Mccormick (Zemuron) 50 mg STK-MED ONCE .ROUTE ; Start 08/19/18 at 12: 05; Stop 08/19/18 at 12:06; Status DC Sevoflurane (Ultane) 30 ml STK-MED ONCE IH ; Start 08/19/18 at 14:17; Stop at 14:18; Status DC Oxybutynin Chloride (Ditropan) 5 mg PRN TID PRN PO stent pain Last administered on 08/19/18at 15:37; Start 08/19/18 at 14:30 Vital Signs Vital Signs Date Time Temp Pulse Resp B/P (MAP) Pulse Ox O2 Delivery O2 Flow Rate FiO2 08/19/18 15:38 Room Air 08/19/18 15:00 97.9 55 16 149/76 (100) 98 97.9 08/19/18 14:26 10 Labs Laboratory Tests Test 08/19/18 07:05 White Blood Count 10.8 x10^3/uL (4.0-11.0) Red Blood Count 4.83 x10^6/uL (4.30-5.70) Hemoglobin 14.2 g/dL (13.0-17.5) Hematocrit 41.1 % (39.0-53.0) Mean Corpuscular Volume 85 fL (79-100) Mean Corpuscular Hemoglobin 30 pg (25-35) Mean Corpuscular Hemoglobin Concent 35 g/dL (31-37) Red Cell Distribution Width 13.4 % (11.5-14.5) Platelet Count 191 x10^3/uL (140-400) Neutrophils (%) (Auto) 63 % (31-73) Lymphocytes (%) (Auto) 28 % (24-48) Monocytes (%) (Auto) 8 % (0-9) Eosinophils (%) (Auto) 1 % (0-3) Basophils (%) (Auto) 0 % (0-3) Neutrophils # (Auto) 6.8 x10^3uL (1.8-7.7) Lymphocytes # (Auto) 3.0 x10^3/uL (1.0-4.8) Monocytes # (Auto) 0.9 x10^3/uL (0.0-1.1) Eosinophils # (Auto) 0.1 x10^3/uL (0.0-0.7) Basophils # (Auto) 0.0 x10^3/uL (0.0-0.2) Sodium Level 142 mmol/L (136-145) Potassium Level 3.9 mmol/L (3.5-5.1) Chloride Level 106 mmol/L (98-107) Carbon Dioxide Level 30 mmol/L (21-32) Anion Gap 6 (6-14) Blood Urea Nitrogen 16 mg/dL (8-26) Creatinine 1.5 mg/dL (0.7-1.3) Estimated GFR (Cockcroft-Gault) 54.2 BUN/Creatinine Ratio 11 (6-20) Glucose Level 89 mg/dL (70-99) Calcium Level 9.0 mg/dL (8.5-10.1) Total Bilirubin 0.8 mg/dL (0.2-1.0) Aspartate Amino Transf (AST/SGOT) 23 U/L (15-37) Alanine Aminotransferase (ALT/SGPT) 77 U/L (16-63) Alkaline Phosphatase 55 U/L (46-116) Total Protein 6.4 g/dL (6.4-8.2) Albumin 3.5 g/dL (3.4-5.0) Albumin/Globulin Ratio 1.2 (1.0-1.7) Laboratory Tests Test 08/19/18 07:05 White Blood Count 10.8 x10^3/uL (4.0-11.0) Red Blood Count 4.83 x10^6/uL (4.30-5.70) Hemoglobin 14.2 g/dL (13.0-17.5) Hematocrit 41.1 % (39.0-53.0) Mean Corpuscular Volume 85 fL (79-100) Mean Corpuscular Hemoglobin 30 pg (25-35) Mean Corpuscular Hemoglobin Concent 35 g/dL (31-37) Red Cell Distribution Width 13.4 % (11.5-14.5) Platelet Count 191 x10^3/uL (140-400) Neutrophils (%) (Auto) 63 % (31-73) Lymphocytes (%) (Auto) 28 % (24-48) Monocytes (%) (Auto) 8 % (0-9) Eosinophils (%) (Auto) 1 % (0-3) Basophils (%) (Auto) 0 % (0-3) Neutrophils # (Auto) 6.8 x10^3uL (1.8-7.7) Lymphocytes # (Auto) 3.0 x10^3/uL (1.0-4.8) Monocytes # (Auto) 0.9 x10^3/uL (0.0-1.1) Eosinophils # (Auto) 0.1 x10^3/uL (0.0-0.7) Basophils # (Auto) 0.0 x10^3/uL (0.0-0.2) Sodium Level 142 mmol/L (136-145) Potassium Level 3.9 mmol/L (3.5-5.1) Chloride Level 106 mmol/L (98-107) Carbon Dioxide Level 30 mmol/L (21-32) Anion Gap 6 (6-14) Blood Urea Nitrogen 16 mg/dL (8-26) Creatinine 1.5 mg/dL (0.7-1.3) Estimated GFR (Cockcroft-Gault) 54.2 BUN/Creatinine Ratio 11 (6-20) Glucose Level 89 mg/dL (70-99) Calcium Level 9.0 mg/dL (8.5-10.1) Total Bilirubin 0.8 mg/dL (0.2-1.0) Aspartate Amino Transf (AST/SGOT) 23 U/L (15-37) Alanine Aminotransferase (ALT/SGPT) 77 U/L (16-63) Alkaline Phosphatase 55 U/L (46-116) Total Protein 6.4 g/dL (6.4-8.2) Albumin 3.5 g/dL (3.4-5.0) Albumin/Globulin Ratio 1.2 (1.0-1.7) Allergies Allergies Coded Allergies Type Severity Reaction Last Updated Verified No Known Drug Allergies 08/19/18 No Disposition/Orders: D/C to Home Patient Instructions d/c planning 38 min ROSEMARY MURILLO MD Aug 19, 2018 16:42
--- NOTE | 2018-08-19 16:44 | DISCH ---
DISCHARGE INSTRUCTIONS Condition on Discharge Condition on Discharge: Stable Activity After Discharge Activity Instructions for Disc: Activity as tolerated Bathing Instructions: No Tub Bath until see Lifting Instructions after Dis: No heavy lifting, No pulling or pushing Driving Instructions after Dis: Do not drive today Diet after Discharge Diet after Discharge: Regular Checks after Discharge Checks after discharge: Check blood press - daily Contacting the after DC Call your doctor for: If your condition worsens Warfarin Follow-Up Warfarin Follow UP: see urology 7-10 days ROSEMARY MURILLO MD Aug 19, 2018 16:44
[2018-08-19] MEDS ORDERED: OXYC-327 PO (16:45)
[2018-08-19] MEDS ORDERED: oxyCODONE/APAP 7.5/325 1 TAB TABLET PO PRN (18:15)
[2018-08-30 13:17] LABS: STONE WEIGHT 4.2 mg (.)
== END 2018-08-19 18:35 | disposition home or self-care (01) | DRG 661 ==
LOC: 4 NORTH 01:50
PROVIDERS: ADMIT Internal Medicine; ATTEND Internal Medicine
PROC: 0TC68ZZ Extirpation of Matter from Right Ureter, Via Natural or Artificial Opening Endoscopic (ICD-10-PCS; 2018-08-19)
PROC: 0T768DZ Dilation of Right Ureter with Intraluminal Device, Via Natural or Artificial Opening Endoscopic (ICD-10-PCS; principal; 2018-08-19 13:30)
DX: N20.2 Calculus of kidney with calculus of ureter (principal); Z87.442 Personal history of urinary calculi; Z79.899 Other long term (current) drug therapy
CPT/HCPCS: 36415; 76000; 80053; 82365; 85025; A7015; C1769; C2617; J0330; J0690; J1100; J2001; J2250; J2270; J2405; J2704; J3010; J3490; J7030; J7120